=== PATIENT | female | born 2000 | race Two or more races ===

== ENCOUNTER 2019-07-02 09:10 | Inpatient (IN) | payer OTHER ==
[~2019-07-02] VITALS: Ht 157.5 cm; Wt 3.6 kg
[~2019-07-02 09:10] MED LIST: PRENATAL 19 TA1 EAC1 PO
== END 2019-07-05 17:42 | disposition home or self-care (01) | DRG 788 ==
LOC: OB/GYN 09:10 → O/R 09:10 → OB/GYN 14:12 → LDR 07-06 13:16
PROVIDERS: ADMIT Obstetrics & Gynecology
PROC: 4A1HXCZ Monitoring of Products of Conception, Cardiac Rate, External Approach (ICD-10-PCS; 2019-07-02)
PROC: 10D00Z1 Extraction of Products of Conception, Low, Open Approach (ICD-10-PCS; principal; 2019-07-02 10:00)
DX: O82 Encounter for cesarean delivery without indication (principal); O64.1XX0 Obstructed labor due to breech presentation, not applicable or unspecified; Z3A.39 39 weeks gestation of pregnancy; Z37.0 Single live birth

== ENCOUNTER 2023-01-31 07:22 | Day surgery (SDC) | payer OTHER ==
[2023-01-31] MEDS ORDERED: IBU600 MG PO (09:12)
== END 2023-01-31 12:30 | disposition home or self-care (01) ==
LOC: CIR.AMB 07:22
PROVIDERS: ATTEND Obstetrics & Gynecology Gynecology
DX: Z30.2 Encounter for sterilization (principal); Z64.1 Problems related to multiparity; Z20.822 Contact with and (suspected) exposure to COVID-19; I10 Essential (primary) hypertension